=== PATIENT | female | born 1990 | race Caucasian/White ===

== ENCOUNTER → 2016-10-14 | Outpatient (CLI) | payer OTHER ==
[~2016-10-14] MED LIST: MULT-506 PO
== END | disposition home or self-care (01) ==
LOC: C.PAPS 15:25
PROVIDERS: ATTEND Obstetrics & Gynecology
DX: Z39.2 Encounter for routine postpartum follow-up (principal)

== ENCOUNTER → 2017-03-27 | Outpatient (CLI) | payer BC | END | disposition home or self-care (01) | LOC: C.LAB 11:24 | PROVIDERS: ATTEND Obstetrics & Gynecology | DX: Z34.81 Encounter for supervision of other normal pregnancy, first trimester (principal) ==

== ENCOUNTER → 2017-04-08 | Outpatient (CLI) | payer BC ==
[2017-04-12 13:07] LABS: CHLAMYDIA TRACH RNA*** NOT DETECTED (NOT DETECTED); GC (NEIS GONORRHOEAE)RNA** NOT DETECTED (NOT DETECTED)
== END | disposition home or self-care (01) ==
LOC: C.LABSPEC 14:57
PROVIDERS: ATTEND Obstetrics & Gynecology
DX: Z34.81 Encounter for supervision of other normal pregnancy, first trimester (principal)

== ENCOUNTER → 2017-06-15 | Outpatient (CLI) | payer OTHER ==
[2017-06-15 12:04] LABS: BASO % 0.2 %; BASO ABS # 0.01 K/uL (0-0.2); COMPLETE YES; EOS % 0.5 %; HEMATOCRIT 38.1 % (37-47); IG% 0.2 %; LYMPH % 24.4 %; LYMPH ABS # 1.62 K/uL (1.2-3.4); MEAN CORPUSCULAR HEMOGLOBIN 29.8 pg (25-34); MEAN CORPUSCULAR HGB CONC 33.9 g/dl (32-36); MONO % 5.4 %; NEUT % 69.3 %; PLATELET COUNT 188 K/uL (130-400); RED BLOOD COUNT 4.33 M/uL (4.2-5.4); WHITE BLOOD COUNT 6.63 K/uL (4.8-10.8)
[2017-06-15 13:15] LABS: GTGD 50 Grams
== END | disposition home or self-care (01) ==
LOC: C.LAB 09:36
PROVIDERS: ATTEND Obstetrics & Gynecology
DX: Z34.82 Encounter for supervision of other normal pregnancy, second trimester (principal); Z3A.00 Weeks of gestation of pregnancy not specified

== ENCOUNTER → 2017-10-23 | Outpatient (CLI) | payer OTHER | END | disposition home or self-care (01) | LOC: C.LABSPEC 15:44 | PROVIDERS: ATTEND Obstetrics & Gynecology | DX: Z34.83 Encounter for supervision of other normal pregnancy, third trimester (principal); Z3A.00 Weeks of gestation of pregnancy not specified ==

== ENCOUNTER 2017-11-01 14:10 | Observation (INO) | payer OTHER ==
[~2017-11-01] VITALS: Ht 157.5 cm; Wt 81.0 kg
[2017-11-01] MEDS ORDERED: LACTATED RINGER'S 1000ML 500 ML IV ONE (14:40)
[2017-11-01 15:06] LABS: HEMATOCRIT 39.4 % (37-47); HEMOGLOBIN 13.7 g/dL (12.0-16.0); MEAN CELL VOLUME 87.4 fL (80-100); MEAN CORPUSCULAR HEMOGLOBIN 30.4 pg (25-34); MEAN CORPUSCULAR HGB CONC 34.8 g/dl (32-36); MEAN PLATELET VOLUME 11.1 fL (7.4-10.4); PLATELET COUNT 182 K/uL (130-400); RED CELL DISTRIBUTION WIDTH CV 12.9 % (11.5-14.5); RED CELL DISTRIBUTION WIDTH SD 41.1 fL (36.4-46.3); WHITE BLOOD COUNT 12.13 K/uL (4.8-10.8)
[2017-11-01] MEDS ORDERED: D5W AND LACTATED RINGERS 1,000 ML IV SCH (15:10)
[2017-11-01 15:25] LABS: ALBUMIN 2.8 gm/dl (3.4-5.0); POTASSIUM 2.9 mmol/L (3.5-5.1)
[2017-11-01 15:31] LABS: TOTAL PROTEIN 6.9 gm/dl (6.4-8.2)
[2017-11-01] MEDS ORDERED: ONDANSETRON INJ 2 MG/ML 2 ML VIAL ONE (15:36)
[2017-11-01] MEDS ORDERED: ONDANSETRON 8 MG/54 ML D5W IV ONE (15:45)
[2017-11-01] MEDS ORDERED: IV FLUIDS COMPLETED PRN (16:15)
--- NOTE | 2017-11-01 16:43 | HISTORY & PHYSICAL EXAMINATION ---
DATE OF ADMISSION: 11/01/2017 CHIEF COMPLAINT: Nausea, vomiting, diarrhea, intrauterine 37 weeks 1 day. HISTORY OF PRESENT ILLNESS: The patient is a 26-year-old 3, para 2. General health is good. She did have effusion of one of her lower spinal disks secondary to a cheerleading accident in 2006. She has had an uneventful course. Her due date is 11/21/2017. Her prior obstetrical history is as follows: In 2011, she had a girl, 7 pounds 4 ounces, spontaneous vaginal delivery, spontaneous labor, 40 weeks, 2-hour labor, pushed 15 minutes. In 2015, she had an induction, 41 weeks, boy, 8 pounds 10 ounces, about a 10-hour induction, pushed for 10 minutes. Present has been uneventful. She started last night with acute onset of nausea, vomiting, diarrhea. She was up most of the night, had multiple bowel movements which were loose. She eventually became somewhat weak, came in through the Emergency Room and was evaluated on maternity. PAST MEDICAL HISTORY: Two children in good health. History of migraines. PAST SURGICAL HISTORY: She has had a spinal fusion in 2006, she had T&A, she had wisdom teeth removed. SOCIAL HISTORY: No smoking. No alcohol intake. Works at [employer]. FAMILY HISTORY: Mom is 52 in good health. Father 54 in good health. Two sisters in good health. ALLERGIES: MORPHINE, WHICH GIVES HER HIVES. REVIEW OF SYSTEMS: History of migraines. No history of frequent or severe or bladder infections. PHYSICAL EXAMINATION: GENERAL: Well-developed, well-nourished 26-year-old white female, alert, oriented x3, cooperative, in no acute distress, appears stated age. EYES: Conjunctivae are pink. Sclerae white. No evidence of jaundice. EARS: Had normal light reflex bilaterally. NOSE: Had normal mucosa. Septum is midline. There were no polyps. THROAT: No erythema or evidence of infection. MOUTH: Teeth are in good state of repair. HEAD: Normocephalic, normal distribution of hair. NECK: Supple. Trachea midline. Thyroid is not enlarged. No adenopathy appreciated. Both carotids are of good intensity. CHEST: Clear to auscultation and percussion. No wheezes, rales or rhonchi are appreciated. HEART: Had regular rhythm. S1 and S2 were normal. BREASTS: Normal. ABDOMEN: Soft and nontender. Gravid abdomen, consistent with 37 weeks' . There was no fundal tenderness and no flank tenderness on either side. PELVIC: Revealed vertex presentation, well applied to the cervix, and cervix was about 70% effaced, firm, posterior 2-3 cm. MUSCULOSKELETAL: Revealed no calf tenderness. IMPRESSIONS OF THIS CASE: Status post spinal fusion, status post tonsillectomy and adenoidectomy, status post wisdom teeth removal, intrauterine at 37 weeks 1 day, viral gastroenteritis, and dehydration.
[2017-11-01] MEDS: POTASSIUM CHLORIDE INJ 20 MEQ in LACTATED RINGER'S 1000ML 1,000 ML IV SCH (17:24)
[2017-11-01] MEDS ORDERED: NURSING VERBAL MED ORDER ONE ×2 (17:45→19:45)
[2017-11-01] MEDS ORDERED: ONDANSETRON INJ 2 MG/ML 2 ML VIAL IV PRN (18:00)
[2017-11-01] MEDS ORDERED: PROMETHAZINE HCL INJ 12.5 MG in SODIUM CHLORIDE 0.9% 50ML 50 ML IV PRN (19:45)
[2017-11-01] MEDS ORDERED: ACETAMINOPHEN 500 MG TAB PO PRN (19:45)
[2017-11-02] MEDS: POTASSIUM CHLORIDE INJ 20 MEQ in LACTATED RINGER'S 1000ML 1,000 ML IV SCH ×4 (00:28→15:47)
[2017-11-02 07:02] LABS: HEMATOCRIT 33.1 % (37-47); HEMOGLOBIN 11.1 g/dL (12.0-16.0); MEAN CELL VOLUME 87.1 fL (80-100); MEAN CORPUSCULAR HEMOGLOBIN 29.2 pg (25-34); MEAN CORPUSCULAR HGB CONC 33.5 g/dl (32-36); MEAN PLATELET VOLUME 11.1 fL (7.4-10.4); PLATELET COUNT 157 K/uL (130-400); RED CELL DISTRIBUTION WIDTH SD 41.6 fL (36.4-46.3); WHITE BLOOD COUNT 9.05 K/uL (4.8-10.8)
[2017-11-02 07:17] VITALS: Ht 157.5 cm; Wt 81.0 kg
[2017-11-02] MEDS ORDERED: PRENTAB26 PO (07:18)
--- NOTE | 2017-11-02 09:08 | OB/GYN Progress Note ---
[employer] Progress Note Date of Service Nov 02, 2017. Subjective conversation w/ patient Ambulation: limited ambulation Voiding: no voiding problems Passing Gas: Yes Diet Tolerance: Clear Liquids, Nausea/Vomiting Review of Systems Constitutional: + fever Objective Physical Exam General Appearance: WELL-APPEARING Respiratory/Chest: lungs clear Abdomen: non tender Fundus: Non-Tender Extremities: no pedal edema, no calf tenderness Laboratory Results Last 24 Hours Test 11/01/17 14:50 11/02/17 06:48 White Blood Count 12.13 K/uL 9.05 K/uL Red Blood Count 4.51 M/uL 3.80 M/uL Hemoglobin 13.7 g/dL 11.1 g/dL Hematocrit 39.4 % 33.1 % Mean Corpuscular Volume 87.4 fL 87.1 fL Mean Corpuscular Hemoglobin 30.4 pg 29.2 pg Mean Corpuscular Hemoglobin Concent 34.8 g/dl 33.5 g/dl RDW Standard Deviation 41.1 fL 41.6 fL RDW Coefficient of Variation 12.9 % 13.0 % Platelet Count 182 K/uL 157 K/uL Mean Platelet Volume 11.1 fL 11.1 fL Sodium Level 139 mmol/L Potassium Level 2.9 mmol/L 3.0 mmol/L Chloride Level 105 mmol/L Carbon Dioxide Level 20 mmol/L Anion Gap 14.0 mmol/L Total Bilirubin 0.7 mg/dl Direct Bilirubin 0.1 mg/dl Aspartate Amino Transf (AST/SGOT) 10 U/L Alanine Aminotransferase (ALT/SGPT) 14 U/L Alkaline Phosphatase 100 U/L Total Protein 6.9 gm/dl Albumin 2.8 gm/dl Assessment and Plan Day Number: 1 Continue Routine Care: multiple bowel movements
--- NOTE | 2017-11-02 12:37 | DIAGNOSTIC IMAGING REPORT ---
ULTRASOUND BIOPHYSICAL PROFILE CLINICAL HISTORY: Variable decelerations. COMPARISON STUDY: No priors. FINDINGS: Real-time, grayscale, and color Doppler sonography of the fetus and gravid uterus is performed as per the biophysical profile. The biophysical profile score is 8 out of 8. Breathing, movement, and tone were observed during the examination. The amniotic fluid index measures 17 cm. The placenta appears posterior. IMPRESSION: 1. Biophysical profile score measures 8 out of 8. 2. Note that this does not constitute a dedicated anatomic scan. Dictated: 11/02/2017 11:50 AM Transcribed: 11/02/2017 12:37 PM [email or web address] Electronically signed by: Roscoe Wisdom M.D. 11/02/2017 12:38 PM Dictated Date/Time: 11/02/2017 11:50 AM
--- NOTE | 2017-11-02 16:52 | Discharge Instructions ---
Discharge Instructions Date of Service Nov 02, 2017. Admission Reason for Admission: Dehydration During , Premature Labor Discharge Discharge Diagnosis / Problem: dehydration contractions Discharge Goals Goal(s): Continuing OB care Activity Recommendations Activity Limitations: as noted below SPECIAL CARE INSTRUCTIONS: Call Doctor if: * Regular contractions every 5 minutes or greater than 6 contractions in one hour. * Bleeding * Water breaks or is leaking * Decreased movement * Fever >100.4 degrees F * Pain not relieved by routine measures or pain medication ordered. FOLLOW UP VISIT: Return for routine office visit . Follow-up Visit with: When: . Current Hospital Diet SPECIAL CARE INSTRUCTIONS: Call Doctor if: * Regular contractions every 5 minutes or greater than 6 contractions in one hour. * Bleeding * Water breaks or is leaking * Decreased movement * Fever >100.4 degrees F * Pain not relieved by routine measures or pain medication ordered. FOLLOW UP VISIT: Return for routine office visit . Follow-up Visit with: When: Patient's current hospital diet: Regular Diet Discharge Diet Recommended Diet: Regular Diet Pending Studies Studies pending at discharge: no Medical Emergencies . Who to Call and When: Medical Emergencies: If at any time you feel your situation is an emergency, please call 911 immediately. . Non-Emergent Contact Non-Emergency issues call your: Freight Unloader Call Non-Emergent contact if: temperature is above 100.5 . . "Provider Documentation" section prepared by Reynaldo Lange. . VTE Core Measure Inpt VTE Proph given/why not?: Treatment not indicated
--- NOTE | 2017-11-02 18:11 | DISCHARGE SUMMARY ---
A 26-year-old 3, para 2. She was admitted at 37 weeks gestation with dehydration due to viral gastroenteritis. She had multiple bowel movements and she began vomiting and basically could not stop vomiting. On admission, she had ketones in her urine, her oral mucosa was dry. She was not putting out any urine and she was having sporadic uterine contractions. On admission, she was given IV fluid bolus and then she was given Ringer's lactate with 5% glucose and 20 mEq of KCl per liter. Her admission potassium was 2.9. Also, her admission hemoglobin was 13.7, hematocrit 39.4. She was also given IV Zofran and some Compazine, this eventually controlled her nausea along with the fluids until she got to the point where she could start tolerating liquids and then small amounts of food. Her admission hemoglobin as previously stated was 13.7, hematocrit 39.4 and by the following morning the hemoglobin had gone to 11.1, hematocrit 33.1; probably from hemodilution. Also, during the evening her bowel movement started to decrease. At the time of discharge, she was tolerating a diet well. She was urinating. She had a biophysical profile which was 8/8. She was feeling well enough to go home. She was given a prescription for Zofran 8 mg tablets to take p.r.n. and instructions for rehydration with Gatorade.
== END 2017-11-02 17:29 | disposition home or self-care (01) ==
LOC: C.OPB 14:10 → C.LD 14:10 → C.OPB 16:00 → C.LD 16:00 → C.OBG 16:33
PROVIDERS: ADMIT Obstetrics & Gynecology; ATTEND Obstetrics & Gynecology
DX: O98.513 Other viral diseases complicating pregnancy, third trimester (principal); A08.4 Viral intestinal infection, unspecified; E86.0 Dehydration; Z98.890 Other specified postprocedural states; Z90.89 Acquired absence of other organs; Z98.818 Other dental procedure status; Z88.5 Allergy status to narcotic agent

== ENCOUNTER 2017-11-22 05:18 | Inpatient (IN) | payer OTHER ==
[~2017-11-22] VITALS: Ht 157.5 cm; Wt 80.0 kg
[~2017-11-22 05:18] MED LIST changes: -MULT-506 PO; +PRENTAB26 PO
[2017-11-22] MEDS ORDERED: LACTATED RINGER'S 1000ML 1,000 ML IV PRN ×2 (05:45→08:05)
[2017-11-22] MEDS ORDERED: LACTATED RINGER'S 1000ML 1,000 ML IV SCH ×2 (05:45→08:05)
[2017-11-22 06:39] VITALS: Ht 157.5 cm; Wt 80.0 kg
[2017-11-22 06:42] LABS: HEMOGLOBIN 12.5 g/dL (12.0-16.0); MEAN CELL VOLUME 85.1 fL (80-100); MEAN CORPUSCULAR HEMOGLOBIN 28.7 pg (25-34); MEAN CORPUSCULAR HGB CONC 33.8 g/dl (32-36); MEAN PLATELET VOLUME 10.6 fL (7.4-10.4); PLATELET COUNT 202 K/uL (130-400); RED CELL DISTRIBUTION WIDTH CV 12.8 % (11.5-14.5); RED CELL DISTRIBUTION WIDTH SD 39.7 fL (36.4-46.3); WHITE BLOOD COUNT 10.02 K/uL (4.8-10.8)
[2017-11-22] MEDS ORDERED: LACTATED RINGER'S 1000ML 500 ML IV PRN (08:07)
[2017-11-22] MEDS ORDERED: OXYTOCIN 30 UNITS/500ML NSS IV PRN ×2 (08:15→12:30)
[2017-11-22] MEDS ORDERED: ACETAMINOPHEN/CODEINE 300/30MG TAB PO PRN ×2 (12:30)
[2017-11-22] MEDS ORDERED: SUPERCREAM 0.870 % 15GM JAR EXT PRN (12:30)
[2017-11-22] MEDS ORDERED: HYDROCORTISONE ACETATE 25 MG SUPP PR PRN (12:30)
[2017-11-22] MEDS ORDERED: BENZOCAINE 20% AER SPR 82.5 GM CAN EXT PRN (12:30)
[2017-11-22] MEDS ORDERED: LANOLIN OINT EXT PRN (12:30)
[2017-11-22] MEDS ORDERED: DIPHTHERIA/TETANUS/PERTUSSIS 0.5 ML SYR/VIAL IM. ONE (12:30)
[2017-11-22] MEDS ORDERED: OXYCODONE/ACETAMINOPHEN 5-325 TAB PO PRN (12:30)
--- NOTE | 2017-11-22 12:46 | DELIVERY SUMMARY ---
DATE OF OPERATION: 11/22/2017 A 26-year-old 3, para 3. Blood type is A positive, rubella immune. Vaginal beta strep screen negative. Due date is 11/21/2017. She has had an uneventful course and was admitted with ruptured membranes. She was not having any contractions. She was about 4+ cm dilated. She was started on IV Pitocin. Pitocin was turned up. She went to full dilatation and delivered a live infant via direct occiput anterior position over an intact perineum. There was a nuchal cord, which was reduced over the head. There was some terminal bradycardia, which was managed with mask oxygen. After delivery of the infant and after suctioning through the mouth and the nose, cord was clamped and cut. Cord blood was taken. With IV Pitocin running, the placenta was removed intact. Inspection of the perineum and clitoral area revealed no lacerations. Vaginal exam revealed no hematoma formation. Hemostasis was good. Estimated blood loss was about 100 mL and 1 minute and 5 minute Apgars were estimated at 8 and 9 respectively. I attest to the content of the Intraoperative Record and any orders documented therein. Any exception s are noted below.
[2017-11-22] MEDS: IBUPROFEN 600 MG TAB PO PRN (13:47)
[2017-11-22 17:05] VITALS: BP 99/60; PULSE 61; TEMP 36.7
[2017-11-22 20:30] VITALS: BP 103/68; PULSE 69; TEMP 36.9
[2017-11-22] MEDS: DOCUSATE SODIUM 100 MG CAP PO SCH (20:34)
[2017-11-22] MEDS: ACETAMINOPHEN 325 MG TAB PO PRN (21:44)
[2017-11-23 00:40] VITALS: BP 100/62; PULSE 62; TEMP 36.3
[2017-11-23] MEDS: IBUPROFEN 600 MG TAB PO PRN ×2 (01:09→10:23)
[2017-11-23] MEDS: ACETAMINOPHEN 325 MG TAB PO PRN ×2 (06:39→13:00)
[2017-11-23 07:22] LABS: HEMATOCRIT 34.1 % (37-47); HEMOGLOBIN 11.4 g/dL (12.0-16.0)
[2017-11-23] MEDS ORDERED: PRENATAL VITAMIN TAB PO SCH (08:00)
[2017-11-23] MEDS ORDERED: FERROUS SULFATE 325 MG TAB PO SCH (08:00)
[2017-11-23 08:10] VITALS: BP 112/65; PULSE 67; TEMP 36.4; O2SAT 18
[2017-11-23] MEDS: DOCUSATE SODIUM 100 MG CAP PO SCH (08:14)
--- NOTE | 2017-11-23 09:09 | Progress Note ---
Subjective Nov 23, 2017. Subjective conversation w/ patient Ambulation: ambulating normally Voiding: no voiding problems Passing Gas: Yes Diet Tolerance: Regular Diet Lochia: Small Feeding Type: Breast Feeding Review of Systems Constitutional: + fever Objective Vital Signs Date Time Temp Pulse Resp B/P (MAP) Pulse Ox O2 Delivery O2 Flow Rate FiO2 11/23/17 00:40 36.3 62 18 100/62 (75) Room Air 11/23/17 00:40 Room Air 11/22/17 20:30 36.9 69 20 103/68 (80) Room Air 11/22/17 17:05 Room Air 11/22/17 17:05 36.7 61 20 99/60 (73) Room Air Physical Exam General Appearance: WELL-APPEARING Fundus: Firm, Non-Tender Extremities: no pedal edema, no calf tenderness Laboratory Results Last 24 Hours Test 11/23/17 06:56 Hemoglobin 11.4 g/dL Hematocrit 34.1 % Assessment and Plan Post- Day#: 1
--- NOTE | 2017-11-23 09:11 | Discharge Instructions ---
Discharge Instructions Date of Service Nov 23, 2017. Admission Reason for Admission: LABOR Discharge Discharge Diagnosis / Problem: ruptured membranes Discharge Goals Goal(s): Routine recovery after delivery Activity Recommendations Activity Limitations: as noted below ACTIVITY RECOMMENDATIONS: * Gradual return to full activity over the next 2-3 weeks. * No lifting - nothing heavier than baby over the next 2-3 weeks. * Do not engage in vigorous exercise, sexual activity or sports until cleared by your physician. * Do not drive or operate any motorized equipment until cleared by your physician. * You may shower/bathe daily. DIET: Resume Previous Diet If Breast-feeding: * Increase caloric intake by 500 calories, eat 3 well balanced meals, 2 high protein snacks a day and drink 6-8 8oz. glasses of fluid per day. BREAST CARE: If you are not breast feeding: * Wear a supportive bra 24 hours a day for one to two weeks. * Avoid stimulating your breasts and nipples as much as possible during the first few weeks after delivery. * When taking a shower, have the warm water hit your back, not breasts. * When your breasts feel full, apply ice packs. Usually three to four times a day helps ease the discomfort. * Take a mild pain medication (Tylenol / Motrin) when you are uncomfortable. If breast feeding: * Use breast milk to lubricate nipples. Lansinoh cream may be used for sore nipples. You do not need to remove cream prior to breast feeding. If using a different brand of cream, check the label for directions regarding removal of cream prior to nursing. * Wear a supportive bra. * If having problems with breasts or breast feeding, call a wardrobe consultant or your health care provider. OVER THE COUNTER MEDICATION: * For discomfort or pain, you may use Acetaminophen (Tylenol), Ibuprofen (Advil ), or Naproxen (Aleve) following the package directions. * For constipation you may use Colace following the package directions. SPECIAL CARE INSTRUCTIONS: * Vaginal rest (no tampons, douching, intercourse) until after doctor 's visit. * control as discussed with doctor. * Verbalizes understanding of car seat law as reviewed with patient nursing. * Car Seat hand-out given and reviewed with patient by nursing. * Shaken baby information reviewed with patient by nursing. Call you doctor if: * Temperature greater than or equal to 100.4 degrees F or 38.0 degrees C. Take your temperature twice daily for a week. * Bleeding becomes heavier than the heaviest part of your period - saturating a sanitary pad within an hour. * Passing large clots. * Bleeding has a foul smelling odor. * Signs and symptoms of phlebitis: leg pain, warm, red or swollen area on leg. * "Baby Blues" lasting longer than two weeks. ++ If you have had a and incision has increased pain, redness, swelling, presence of any drainage, or if the incision starts to open up. If you have any questions or concerns, call your health care practitioner at [phone]. FOLLOW-UP VISIT: Please call the office at to schedule a 6 week examination. . Instructions / Follow-Up Instructions / Follow-Up ACTIVITY RECOMMENDATIONS: * Gradual return to full activity over the next 2-3 weeks. * No lifting - nothing heavier than baby over the next 2-3 weeks. * Do not engage in vigorous exercise, sexual activity or sports until cleared by your physician. * Do not drive or operate any motorized equipment until cleared by your physician. * You may shower/bathe daily. DIET: Resume Previous Diet If Breast-feeding: * Increase caloric intake by 500 calories, eat 3 well balanced meals, 2 high protein snacks a day and drink 6-8 8oz. glasses of fluid per day. BREAST CARE: If you are not breast feeding: * Wear a supportive bra 24 hours a day for one to two weeks. * Avoid stimulating your breasts and nipples as much as possible during the first few weeks after delivery. * When taking a shower, have the warm water hit your back, not breasts. * When your breasts feel full, apply ice packs. Usually three to four times a day helps ease the discomfort. * Take a mild pain medication (Tylenol / Motrin) when you are uncomfortable. If breast feeding: * Use breast milk to lubricate nipples. Lansinoh cream may be used for sore nipples. You do not need to remove cream prior to breast feeding. If using a different brand of cream, check the label for directions regarding removal of cream prior to nursing. * Wear a supportive bra. * If having problems with breasts or breast feeding, call a wardrobe consultant or your health care provider. OVER THE COUNTER MEDICATION: * For discomfort or pain, you may use Acetaminophen (Tylenol), Ibuprofen (Advil ), or Naproxen (Aleve) following the package directions. * For constipation you may use Colace following the package directions. SPECIAL CARE INSTRUCTIONS: * Vaginal rest (no tampons, douching, intercourse) until after doctor 's visit. * control as discussed with doctor. * Verbalizes understanding of car seat law as reviewed with patient nursing. * Car Seat hand-out given and reviewed with patient by nursing. * Shaken baby information reviewed with patient by nursing. Call you doctor if: * Temperature greater than or equal to 100.4 degrees F or 38.0 degrees C. Take your temperature twice daily for a week. * Bleeding becomes heavier than the heaviest part of your period - saturating a sanitary pad within an hour. * Passing large clots. * Bleeding has a foul smelling odor. * Signs and symptoms of phlebitis: leg pain, warm, red or swollen area on leg. * "Baby Blues" lasting longer than two weeks. ++ If you have had a and incision has increased pain, redness, swelling, presence of any drainage, or if the incision starts to open up. If you have any questions or concerns, call your health care practitioner at [phone]. FOLLOW-UP VISIT: Please call the office at to schedule a 6 week examination. Current Hospital Diet Patient's current hospital diet: Regular Diet, Regular OB Diet Discharge Diet Recommended Diet: Regular Diet Pending Studies Studies pending at discharge: no Medical Emergencies . Who to Call and When: Medical Emergencies: If at any time you feel your situation is an emergency, please call 911 immediately. . Non-Emergent Contact Non-Emergency issues call your: Wind Field Manager Call Non-Emergent contact if: temperature is above 100.5 . . "Provider Documentation" section prepared by Reynaldo Lange. . VTE Core Measure Inpt VTE Proph given/why not?: Treatment not indicated
[2017-11-23 12:40] VITALS: BP 95/61; PULSE 65; TEMP 36.7
[2017-11-23 14:43] VITALS: BP_DIAS 61; PULSE 65; TEMP 36.7
[2017-11-23] MEDS ORDERED: BISACODYL 5 MG TABEC PO SCH (20:00)
[2017-11-24] MEDS ORDERED: BISACODYL 10 MG SUPP PR PRN (07:00)
== END 2017-11-23 14:43 | disposition home or self-care (01) | DRG 775 ==
LOC: C.LD 05:18 → C.OPB 05:18 → C.LD 05:47 → C.OPB 05:47 → C.OBG 15:21
PROVIDERS: ADMIT Obstetrics & Gynecology; ATTEND Obstetrics & Gynecology
PROC: 10E0XZZ Delivery of Products of Conception, External Approach (ICD-10-PCS; principal; 2017-11-22)
DX: O76 Abnormality in fetal heart rate and rhythm complicating labor and delivery (principal); O69.81X0 Labor and delivery complicated by cord around neck, without compression, not applicable or unspecified; Z3A.40 40 weeks gestation of pregnancy; Z37.0 Single live birth

== ENCOUNTER → 2018-01-01 | Outpatient (CLI) | payer OTHER | END | disposition home or self-care (01) | LOC: C.PAPS 18:17 | PROVIDERS: ATTEND Obstetrics & Gynecology | DX: Z39.2 Encounter for routine postpartum follow-up (principal) ==

== ENCOUNTER → 2018-05-11 | Outpatient (CLI) | payer OTHER ==
[2018-05-11 16:46] LABS: HEMATOCRIT 37.2 % (37-47)
== END | disposition home or self-care (01) ==
LOC: C.LAB 16:23
PROVIDERS: ATTEND Obstetrics & Gynecology
DX: N92.0 Excessive and frequent menstruation with regular cycle (principal)

== ENCOUNTER 2025-04-14 08:17 | Observation (INO) ==
--- NOTE | 2025-04-07 10:33 | Anesthesiology Consultation ---
Date of Service April 07, 2025 Assessment & Plan (1) Encounter for pre-operative examination: Chart Review Chart Review: Acceptable Risk for Surgery and Patient NOT seen in Pre Admission Testing - Check test AM DOS -Infectious Disease screening: Per PAT nursing assessment on 04/07/25. No known infectious disease contacts in past 10 days or current infectious disease symptoms. No recent travel outside the country. Robotic lap pascale 12/30/23= Done under [place] with Grade 1 view with MAC #3. ETT #7.0 History Surgery Operation Date: 01/20/25 07:00 Proposed Procedures p Total Abdominal Hysterectomy - Reynaldo Lange MD Operation Date: 04/14/25 07:00 Proposed Procedures p Total Abdominal Hysterectomy - Reynaldo Lange MD Height/Weight Height: 5 ft 2 in Weight: 68.039 kg Allergies Allergy/AdvReac Type Severity Reaction Status Date / Time latex Allergy Unknown RASH Verified 04/07/25 07:35 morphine Allergy Unknown HIVES Verified 04/07/25 07:35 Medications Home Medications Medication Instructions Recorded Confirmed Last Taken cholecalciferol (vitamin D3) 10 2 - 3 unit PO DAILY 02/17/23 04/07/25 12/29/23 08:00 mcg/mL (400 unit/mL) oral drops atogepant 60 mg tablet (Qulipta) 60 mg PO DAILY #90 tabs 02/17/25 04/07/25 Unknown ubrogepant 100 mg tablet (Ubrelvy) 100 mg PO .COMPLEX #15 tabs 02/17/25 04/07/25 Unknown rimegepant 75 mg disintegrating 75 mg PO Q2D 04/07/25 04/07/25 Unknown tablet (Nurtec ODT) Past Medical History Medical History Endometriosis Esophageal dysphagia "occasional" (since at least 2018- EGD at that time showed no issues) History of thyroid nodule monitoring Hx of iron deficiency anemia Migraines Past Family History Family History Mother Gallbladder disease Grandmother (Paternal) Hyperlipidemia Myocardial infarction Grandfather (Paternal) Hyperlipidemia Myocardial infarction Father Hypertension Family/Other Breast cancer GREAT GRANDMOTHER Past Surgical History Surgical History History of loop electrical excision procedure (LEEP) w/colposcopy History of oral surgery teeth extraction, 2007 History of tonsillectomy 2008 Hx laparoscopic cholecystectomy (12/30/23) Robotic assisted Laparoscopic Cholecystectomy(Not Applicable) - Eduar Penny DO, FACS Hx of laparoscopy w/D&C S/P dilation and curettage 03/2021 S/P endometrial ablation (03/2021) S/P lumbar fusion HX March 2007 S/P nasal septoplasty (07/2022) septoplasty w/ inferior turbinate reduction S/P tubal ligation (2020) Social History Smoking Status: Never smoker Do You Dip or Chew Tobacco: No Hx Alcohol Use: No Hx Substance Use: No substance use type: does not use Testing Laboratory Results 03/21/25= WBC: 7.05 H/H: 13.8/41.0 PLATELETS: 215
[2025-04-14 08:52] LABS: Hematocrit (blood only) 37.1 % (37.0-47.0); Hemoglobin 12.9 g/dl (12.0-16.0); Immature Granulocytes # (auto) 0.01 K/uL (0.01-0.20); Immature Granulocytes % (auto) 0.2 %; Mean Corpuscular Hemoglobin 30.5 pg (25.0-34.0); Mean Corpuscular Volume 87.7 fL (80.0-100.0); Platelet Count 209 K/uL (130-400); RDW Standard Deviation 37.8 fL (36.4-46.3); Red Blood Count 4.23 M/uL (4.20-5.40); White Blood Count 5.07 K/ul (4.8-10.8)
[2025-04-14] MEDS: LR 15ML/HR IV SCH (08:59)
--- NOTE | 2025-04-14 10:24 | History & Physical Bridge Note ---
Date of Service April 14, 2025 History & Physical Bridge Note I have examined the patient, reviewed the History & Physical and in the interval since the performance of the History & Physical I have noted the following changes of clinical significance: no changes noted
[2025-04-14] MEDS ORDERED: PROPOFOL IV EMULSION 10 MG/ML 20 ML VIAL IV ONE (10:32)
[2025-04-14] MEDS ORDERED: CISATRACURIUM BESYLATE IV SOLN 2 MG/ML 10 ML VIAL IV ONE (10:34)
[2025-04-14] MEDS ORDERED: MIDAZOLAM HCL 1 MG/ML 2ML VIAL ONE (10:34)
[2025-04-14] MEDS: cefOXitin 2,000 MG in DEXTROSE 5 % MINI-B 50 ML IV SCH (11:02)
[2025-04-14] MEDS ORDERED: ONDANSETRON INJ 2 MG/ML 2 ML VIAL ONE (11:07)
[2025-04-14] MEDS ORDERED: DEXAMETHASONE SOD INJ 4 MG/ML VIAL ONE (11:07)
[2025-04-14] MEDS ORDERED: HYDROmorphone INJ 2 MG/ML SYR/VIAL ONE (11:11)
[2025-04-14] MEDS ORDERED: KETOROLAC 30 MG/ML VIAL ONE (11:24)
[2025-04-14] MEDS ORDERED: NEOSTIGMINE METHYLSULFATE 1 MG/ML 10ML VIAL ONE (11:28)
[2025-04-14] MEDS ORDERED: GLYCOPYRROLATE 0.2 MG/ML VIAL ONE (11:28)
[2025-04-14] MEDS ORDERED: SENNA 8.6 MG TAB PO PRN (13:12)
[2025-04-14] MEDS ORDERED: MEPERIDINE HCL 25 MG/ML CARP/VIAL IV PRN (13:12)
--- NOTE | 2025-04-14 13:12 | Operative Report ---
Post Operative Report Pre & Post Diagnosis Operation Date: 04/14/25 10:05 Pre-Op Diagnosis: Abnormal uterine bleeding Post-Op Diagnosis: Abnormal uterine bleeding I identified the patient and participated in the time-out.: Yes Procedure Operation Date: 04/14/25 10:05 Actual Procedures p Total Abdominal Hysterectomy with Preservation of Ovaries(Not Applicable) - Reynaldo Lange MD Surgeon Reynaldo Lange MD Web Site Specialist Merissa Kennedy Estimated Blood Loss 100 Findings Consistent with Post-Op Diagnosis Specimens Uterus and cervix Drains [place] drain with safety pin in the vaginal cuff Anesthesia Type General Complications None Indications Pelvic pain irregular heavy vaginal bleeding failed endometrial ablation Description of Procedure Patient was brought to the OR correctly identified by armband and conversation Robison catheter was inserted into the bladder connected to gravity drainage. Compression stockings were applied. Vaginal prep was done with Betadine. Lower abdomen was painted with an alcohol-based sterilizing solution. A Pfannenstiel was made and carried down to the anterior fascia by blunt and sharp dissection. Fascia was incised transversely the recti muscles. Rectus muscle in the midline peritoneum was carefully raised and entered. An O'Tom-O'Jan self-retaining retractor was inserted into the incision. 3 laparotomy packs were used to pack off the intestines provide adequate exposure of the pelvic cavity. At this time both tubes are status post tubal ligation. 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 Procedure was performed by clamping the round ligaments close to the uterus. Then using a transfixion suture distally to tie off the round ligament. And then a suture more proximal to this to create hemostasis was done with a silk tie. Round ligaments were cut and the vesicouterine fold was developed. Bladder was advanced out of the operative field. Posterior leaf of the broad ligament was punched through bluntly on each side. The ovarian ligament and blood supply was clamped close to the fundus. And then just distal to the fundus. The ovaries were cut free of the uterus on both sides. Stumps were ligated with a transfixion suture chromic catgut. And then a silk tie to create additional hemostasis. Uterine vessels were skeletonized. Doubly clamped with curved Cassandra's. Cut and then doubly ligated with chromic gut suture. Stumps were then cauterized. The bladder was advanced out of the operative field. The round ligaments were cut by sliding off the cervix with a curved Cassandra. Then cutting with a stump and then tying with a chromic gut suture. This was done in 3 steps because of the length of the cervix. The cervix was then shelled out with electrocautery and the vaginal cuff entered. Angles of the vaginal cuff were grasped with 2 straight Mati's. Angles of the vaginal cuff were then suture-ligated to the stumps of the cardinal ligaments. Then a [id number] suture was used to approximate the vaginal cuff front to back anchoring the proximal portion of the suture in the cardinal ligament and then tying it off this was done for both the right and left side. Midportion of the vaginal cuff was whipstitched open with a continuous 3-0 chromic. The uterosacral ligaments were then plicated with a heavy Vicryl suture which further support of the vaginal cuff. Renetta drain was safety pin was placed in the vagina approximately and into the cul-de-sac. The round ligaments were brought down suture were tied into the vaginal cuff for suspension. Reperitonealization was accomplished with 3-0 Chromic Gut suture tied in the midline. Pelvis was washed of all blood clots and debris hemostasis was excellent. Packs were removed. Careful anatomical approximation of the anterior abdominal wall was performed. Peritoneum was closed with a running suture of chromic catgut. Rectus muscles were approximated up with [id number] suture chromic catgut. The fascial layer was approximated with a continuous interlocking suture of 0 Vicryl on each side tied in the midline. Subcu was approximated with a running plain. Skin edges were approximated with staple clips. Patient Toller procedure well left the OR in good condition Dr. Lange dictating. I attest to the content of the Intraoperative Record and any orders documented therein. Any exceptions are noted below. executive assistant to general counsel was necessary to provide adequate exposure and to provide safe surgery for this patient.
[2025-04-14] MEDS: HYDROmorphone INJ 2 MG/ML SYR/VIAL IV PRN (13:20)
[2025-04-14] MEDS ORDERED: ATROPINE SULFATE 0.1 MG/ML 10ML SYR IV PRN (13:21)
[2025-04-14] MEDS ORDERED: NALOXONE HCL 0.4 MG/1 ML VIAL/CARP IV PRN (13:21)
[2025-04-14] MEDS ORDERED: FLUMAZENIL 0.1 MG/1 ML 10 ML VIAL IV PRN (13:21)
[2025-04-14] MEDS ORDERED: PROMETHAZINE HCL 6.25 MG in SODIUM CHLORIDE 0.9% 50 ML IV PRN (13:21)
[2025-04-14] MEDS ORDERED: ONDANSETRON INJ 2 MG/ML 2 ML VIAL IV PRN (13:21)
--- NOTE | 2025-04-14 13:48 | Anesthesiology Progress Note ---
Date of Service April 14, 2025 Anesthesia Post Procedure Vital Signs Vital Signs: Temp Pulse Pulse Resp BP Pulse Ox O2 Del Method 04/14/25 13:45 65 18 116/71 94 Room Air 04/14/25 13:35 57 L 14 114/72 95 Oxymask 04/14/25 13:25 59 L 18 105/61 97 Oxymask 04/14/25 13:15 36.4 C L 93 H 18 105/55 L 97 Oxymask 04/14/25 08:34 36.1 C L 65 16 115/67 100 Room Air O2 Flow Rate 04/14/25 13:45 04/14/25 13:35 3 04/14/25 13:25 4 04/14/25 13:15 6 04/14/25 08:34 Pain Intensity Abdomen: Pain Intensity: 3 Transfer of Care Handoff Completed per policy Notes Mental Status: alert / awake / arousable Patient Amnestic to Procedure: Yes Nausea / Vomiting: adequately controlled Pain: adequately controlled Airway Patency, RR, SpO2: stable & adequate BP & HR: stable & adequate Hydration State: stable & adequate Anesthetic Complications: no major complications apparent
[2025-04-14] MEDS: LACTATED RINGER'S 1,000 ML IV SCH (15:44)
[2025-04-14] MEDS: KETOROLAC 30 MG/ML VIAL IV PRN (15:48)
[2025-04-14] MEDS: ONDANSETRON INJ 2 MG/ML 2 ML VIAL IV PRN (18:07)
[2025-04-14] MEDS: IBUPROFEN 600 MG TAB PO PRN (20:10)
[2025-04-15 06:38] LABS: Hematocrit (blood only) 33.8 % (37.0-47.0); Hemoglobin 12.0 g/dl (12.0-16.0); Immature Granulocytes # (auto) 0.04 K/uL (0.01-0.20); Immature Granulocytes % (auto) 0.3 %; Mean Corpuscular Hemoglobin 31.1 pg (25.0-34.0); Mean Corpuscular Volume 87.6 fL (80.0-100.0); Platelet Count 205 K/uL (130-400); RDW Standard Deviation 38.0 fL (36.4-46.3); Red Blood Count 3.86 M/uL (4.20-5.40); White Blood Count 12.03 K/ul (4.8-10.8)
[2025-04-15] MEDS: MAGNESIUM HYDROXIDE SUSP 30 ML UDC PO PRN (08:51)
--- NOTE | 2025-04-15 09:47 | Obstetrical Progress Note ---
Date of Service April 15, 2025 Assessment & Plan Admission and Anticipated Discharge Date Admission Date: April 14, 2025 Subjective abdomen soft and non tender bowel sounds are present bandage removed incision is clean and dry no calf tenderness vaginal bleeding scant hgb 12 Results & Data Vital Signs (Past 12 Hours) Vital Signs Temp Pulse Resp BP Pulse Ox O2 Del Method 04/15/25 03:45 37.1 C 66 16 98/60 L 98 Room Air 04/15/25 00:15 37.0 C 86 18 103/62 96 Room Air
[2025-04-15] MEDS: SIMETHICONE 80 MG CHEW PO PRN (11:59)
[2025-04-15] MEDS: ACETAMINOPHEN 325 MG TAB PO PRN (12:30)
[2025-04-15] MEDS: HYDROmorphone INJ 2 MG/ML SYR/VIAL ONE (21:25)
[2025-04-16 07:24] LABS: Hematocrit (blood only) 32.1 % (37.0-47.0); Hemoglobin 10.7 g/dl (12.0-16.0); Immature Granulocytes # (auto) 0.03 K/uL (0.01-0.20); Immature Granulocytes % (auto) 0.3 %; Mean Corpuscular Hemoglobin 30.0 pg (25.0-34.0); Mean Corpuscular Volume 89.9 fL (80.0-100.0); Platelet Count 176 K/uL (130-400); RDW Standard Deviation 39.4 fL (36.4-46.3); Red Blood Count 3.57 M/uL (4.20-5.40); White Blood Count 8.63 K/ul (4.8-10.8)
--- NOTE | 2025-04-16 11:18 | Obstetrical Progress Note ---
Date of Service April 16, 2025 Assessment & Plan Admission and Anticipated Discharge Date Admission Date: April 14, 2025 Subjective abdomen soft and non tender incision is clean and dry passing gas ambulating well no calf tenderness vaginal bleeding scant hgb 10.7 Results & Data Vital Signs (Past 12 Hours) Vital Signs Temp Pulse Resp BP Pulse Ox O2 Del Method 04/16/25 08:00 36.8 C 69 18 104/63 99 Room Air 04/16/25 04:40 36.9 C 70 18 90/60 L Room Air 04/16/25 00:42 37.0 C 83 20 92/58 L 96 Room Air
--- NOTE | 2025-04-16 11:23 | Discharge Summary ---
Date of Service April 16, 2025 Admission HPI Per Admitting Provider Patient was admitted for total abdominal hysterectomy with preservation of ovary. Patient was experience worsening pelvic pain. Irregular bleeding. Status post endometrial ablation status post tubal ligation. Discharge Data Procedures Performed Operation Date: 04/14/25 10:05 Actual Procedures p Total Abdominal Hysterectomy with Preservation of Ovaries(Not Applicable) - Reynaldo Lange MD Hospital Course (1) Vaginal bleeding, abnormal: Plan Patient is a 34-year-old complaining of irregular bleeding and worsening pelvic pain. Patient's status post tubal ligation. Status post endometrial ablation. The day of admission patient was taken to the OR given prophylactic antibiotics underwent total abdominal hysterectomy with suspension of the vaginal cuff and preservation of both ovaries. Postoperatively she did well. She remained afebrile for the rest of her postoperative course. Her preoperative hemoglobin was 12.9. The day of discharge her hemoglobin was 10.7. The day of discharge [place] drain with safety pin was removed from the vaginal cuff. At this time the patient was ambulating well eating well having a bowel movement. Pain was well-controlled with a combination of nonnarcotic pain relievers and Percocet. Patient was given instructions to call if she had a temp over 100 any heavy bleeding or abdominal pain. Was also given a number to call [facility] for for removal of the hola.
[2025-04-16 12:07] VITALS: BP 104/59; RESP 16; TEMP 98.4; O2SAT 98
[2025-04-16 12:20] VITALS: PULSE 66
== END 2025-04-16 12:35 | disposition home or self-care (01) | DRG 743 ==
LOC: ASU 08:17 → 4E1 13:12 → INTOOBSV 13:12